=== PATIENT | male | born 1975 | race Caucasian/White ===

== ENCOUNTER 2018-12-14 21:57 | Emergency (ER) | payer BC, SELFPAY ==
[2018-12-14 21:57] VITALS: BP 145/91; PULSE 80; RESP 16; TEMP 36.6; O2SAT 100; BMI 26.9
[2018-12-14 22:01] VITALS: BP 145/91; PULSE 74; RESP 14; O2SAT 100
--- NOTE | 2018-12-14 22:01 | EKG12_ITS ---
Test Reason : CONFUSION Blood Pressure : / mmHG Vent. Rate : 071 BPM Atrial Rate : 071 BPM P-R Int : 188 ms QRS Dur : 090 ms QT Int : 382 ms P-R-T Axes : 074 059 065 degrees QTc Int : 415 ms Normal sinus rhythm Normal ECG Confirmed by RUBIO SMITH, AUDRA ([id number]), publication editor ALHAJI RIDLEY ([id number]) on 12/17/2018 2:15:57 PM Referred By: SARAH FINE Confirmed By:AUDRA BERGERON MD
--- NOTE | 2018-12-14 22:04 | CT_ITS ---
STUDY: CT BRAIN WITHOUT CONTRAST REASON FOR EXAM: Male, 43 years old. Confusion. Dizziness. RADIATION DOSAGE (If Supplied By Facility): CTDIvol = ( 44.99 ) mGy, DLP = ( 796.11 ) mGycm TECHNIQUE: Transaxial CT imaging of the brain was performed without administration of intravenous contrast material. Individualized dose optimization techniques were used for this CT. COMPARISON: None. FINDINGS: There is no acute bleed or infarct. There are normal white matter tracts. The ventricles are normal in configuration. There is no hydrocephalus. The visualized paranasal sinuses are clear. The mastoid air cells are well aerated. There is no skull fracture. CT/Brain/Head without Contrast IMPRESSION: No acute intracranial abnormality. Electronically Signed: Brina Cooper, at 22:42 EST Tel , Service support ,
[2018-12-14 22:11] LABS: Bedside Glucose 85 mg/dL (70-110)
--- NOTE | 2018-12-14 22:12 | ED.RN ---
NO OLD EKGS IN MUSE
[2018-12-14 22:18] LABS: Absolute Lymphocyte Count 1.34 X10^3/ul (0.83-4.51); Absolute Neutrophil Count 3.4 X10^3/uL (2.0-7.7); Basophil# 0.03 X10^3/uL; Basophil% 0.5 % (0-1); Eosinophil# 0.26 X10^3/uL; Eosinophils% 4.7 % (0-5); Hematocrit 44.7 % (40-54); Hemoglobin 15.1 g/dl (13.0-16.5); Lymphocyte # 1.34 X10^3/ul (4.0); Mean Corp Hgb Conc 33.8 g/gl (32-36); Mean Corpuscular Hgb 29.8 pg (27.0-32.0); Mean Corpuscular Volume 88.2 fL (80-94); Mean Platelet Vol. 10.4 fl (6.2-12.0); Monocyte# 0.53 X10^3/uL; Monocyte% 9.5 % (0-10); Neutrophil # 3.42 X10^3/uL (2.7-7.7); Neutrophil % 61.1 % (47-70); Platelet Count 242 K/mm3 (150-450); RBC Distribution Width CV 12.7 % (11.6-14.6); RBC Distribution Width SD 40.3 fl (35.1-43.9); Red Blood Count 5.07 M/mm3 (4.6-6.2); White Blood Count 5.6 K/mm3 (4.4-11.0)
[2018-12-14 22:21] LABS: POSITIVE COUNT NO; POSITIVE DIFFERENTIAL NO; POSITIVE MORPHOLOGY NO
[2018-12-14 22:29] LABS: Anion Gap 6 (5-15); BUN 10 mg/dL (7-18); BUN/Creat Ratio 8.4 RATIO (10-20); Calcium,Total 8.8 mg/dL (8.5-10.1); Chloride 107 mmol/L (98-107); Creatinine, Serum 1.19 mg/dL (0.70-1.30); EST Glomerular Filtration Rate 71 mL/min (>60); Est Glom Filt Rate - Afr Amer 86 mL/min (>60); Estimated Creatinine Clearance 86.13 ml/min; Glucose 88 mg/dL (74-106); Potassium 3.9 mmol/L (3.5-5.1); Sodium Level 141 mmol/L (136-145)
[2018-12-14 22:50] LABS: Prothrombin Time (Protime)PT. 13.3 SECONDS (11.7-14.9)
[2018-12-14 22:59] VITALS: BP 154/98; PULSE 61; RESP 13; O2SAT 100
[2018-12-14 23:02] VITALS: BP 152/92; PULSE 69; RESP 14; O2SAT 100
--- NOTE | 2018-12-14 23:34 | ED.VISSUMM ---
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 He felt disoriented and lightheaded like he might pass out. He did not pass out. It lasted for 15-20 minutes tonight. Currently he does not feel lightheaded or disoriented. He stated the light bothers his eyes. He noticed that he was seeing some circles in his vision and some black spots. Currently he is seeing a few black spots in the periphery. He did miss dinner this evening. No history of migraines but does get tension headaches. No treatment. He denies any vertigo. Denies any weakness in his arms or legs or slurred speech or other stroke symptoms. Physical Examination: Vital signs reviewed General: Well-nourished well-developed Head: Normocephalic atraumatic Eyes: Pupils equal round and reactive to light extraocular movements intact ENT: TMs clear no hemotympanum no trauma Neck: Nontender full range of motion Cardiovascular: Regular rate rhythm no murmurs normal S1-S2 Respiratory: No distress clear to auscultation bilaterally chest nontender Abdomen: Soft nontender nondistended normal bowel sounds no masses Back: Nontender no CVA tenderness Extremities: Nontender active range of motion ?4 extremities no trauma Skin: Normal color no trauma Neuro alert oriented cranial nerves II through XII intact normal strength sensation reflexes NIH stroke scale 0. Normal gait. Test Results: [] Emergency Department Course and Treatment: [] EKG shows sinus rhythm at 71 without ischemia. CBC and chemistry normal. Blood sugar is 85. Coags are negative. CT head is normal. Patient patient given a bolus of IV fluids as well as Toradol. Reevaluation he felt much better. His headache is almost completely gone. He does not have any lightheadedness or visual difficulties. I think he has a migraine. He has had headache and felt lightheaded the light bothers his eyes. I do not think he has had a TIA or stroke. He could have had a near syncopal episode however with a migraine. I do not think he needs an emergent MRI or stroke workup as an inpatient. He will follow-up as an outpatient and return if he worsens Treatment Plan: [] Disposition: [] Impression: [] Migraine headache Near syncope secondary to migraine headache This note was generated with [employer] dictation software. It may contain incorrect words, spelling, and punctuation that were not noted in review of the chart prior to signing ED Disposition - Plan for ED Patient: Chief Complaint: Confusion Referrals: Ho Polo MD [Primary Care Provider] -
[2018-12-14] MEDS: Ketorolac 30 MG/ML Syringe IV (23:41)
--- NOTE | 2018-12-14 23:55 | ED.RN ---
PER DR. HORAN VERBAL ORDER IT IS OK TO DISCONTINUE [facility]
[2018-12-15 00:38] VITALS: BP 149/86; PULSE 78; RESP 15; O2SAT 100
--- NOTE | 2018-12-15 00:42 | ED.DEP ---
ED Disposition - Plan for ED Patient: Disposition: Home or Assisted Living Chief Complaint: Confusion Instructions: ED Headache Migraine Referrals: Ho Polo MD [Primary Care Provider] -
--- NOTE | 2018-12-15 00:48 | ED.RN ---
pt reports cont. headache. dr. gan informed. awaiting further orders will continue to monitor.
[2018-12-15 00:58] VITALS: BP 143/85; PULSE 73; RESP 17; O2SAT 99
--- NOTE | 2018-12-15 00:59 | ED.RN ---
PT EDUCATED ON WRITTEN AND VERBAL DISCHARGE INSTRUCTIONS. PT VERBALIZES UNDERSTANDING AND DENIES ANY FURTHER QUESTIONS. I/V D/C AND COVERED WITH 2X2 GAUZE AND PAPER TAPE.
--- OUTSIDE RECORDS SUMMARY | 2019-02-16 | XMS RPT_ITS | Clinical Summary ---
:1975 Author Organization [facility] Address [address] [place] [address] Phone Care Team Providers Name Role Phone Hope Cheatham Unavailable Conditions or Problems Problem Name Problem Onset Status Entry Provider Comment Standard Annotate Code Date Date Description Surgical 172645420 Active Safdar Surgical followup visit (SNOMED CT) 03/24 03/24 Jose Enrique follow-up [place] Hx of lumbar 063542145 Active Safdar Operation on spine surgery (SNOMED CT) 02/23 02/23 Jose Enrique lumbar spine (not billable [place] after 08/23/2016) Spondylosis, 034692960 Active Safdar Lumbosacral lumbar, with (SNOMED CT) 12/01 12/01 Jose Enrique spondylosis radiculopathy [place] with radiculopathy Medications Medication Instructions Start Stop Generic Name NDC Provider Date Date ADVIL 200 MG IBUPROFEN [id number] Enoc L CAPS 9 Marium Medications Administered No information available. Allergies, Adverse Reactions, Alerts Observed no known allergies at Results Date Name Value Unit Range Flag Description Office Visit: Spine Visit MEDS REVIEW Done Documentation of current medications (procedure) ORALTOBACUSE Never Tobacco smoking status NHIS SMOK STATUS Never smoker Tobacco use [facility] Plan of Care Type Date Detail Appointment 10:45 AM Hope Cheatham, [address] [facility], [address], [place], [address], Referral [facility], [address] [facility], [place], [address] Referral [facility], [address] [place] [address], [address] Referral [facility], [address] [place] [address], [address] Referral [facility], [address] [place] [address], [phone] + Referral [facility], [address] [place] [address], [phone] + Referral [facility], [address] [place] [address], [phone] + Procedures No information available. Vital Signs Date Name Value Unit Description BMI (Body Mass 25.80 kg/m2 Body Mass Index Index) [Ratio] Height 71 [in_us] height E&M - 8302-2 Weight Measured 185 [lb_av] weight E&M - 3141-9
--- OUTSIDE RECORDS SUMMARY | 2019-02-16 | XMS RPT_ITS | Clinical Summary ---
:1975 Author Organization [facility], [facility] Address 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 208258622 Active [facility] Surgical followup (SNOMED 03/24 03/24 Jose Enrique follow-up visit CT) [place] Hx of lumbar 114810765 Active [facility]dar Operation on spine surgery (SNOMED 02/23 02/23 Jose Enrique lumbar spine (not billable CT) [place] after 08/23/2016) Spondylosis, 375967713 Active Safdar Lumbosacral lumbar, with (SNOMED 12/01 12/01 Jose Enrique spondylosis with radiculopathy CT) [place] radiculopathy Medications Medication Instructions Start Stop Generic Name NDC Provider Date Date NEXIUM 24HR 20 Take one tablet / ESOMEPRAZOLE [id number] Kyaw D MG CPDR daily 3 02 MAGNESIUM Osiel ALMAGUER ADVIL 200 MG IBUPROFEN [id number] Enoc [place] CAPS 9 Marium NEXIUM PACK PRN ESOMEPRAZOLE [id number] Arminda Riley 3 MAGNESIUM PACK Bryce PYLE Medications Administered No information available. Allergies, Adverse Reactions, Alerts Observed no known allergies at Results Date Name Value Unit Range Flag Description Office Visit: UC: choked and now having acid reflux FALLRSKASSES No Fall risk assessment ORALTOBACUSE Never Tobacco smoking status NHIS SMOK STATUS Never smoker Tobacco use [facility] MEDS REVIEW Done Documentation of current medications (procedure) Plan of Care Type Date Detail Appointment 06:30 AM Kyaw ALMAGUER, [address] [facility], [address], [place], [address], Appointment 09:00 AM Hope Cheatham, [facility] [facility], [address], [place], [address], Referral Surgery Referral Po Wilkinson MD, [facility], [address] [facility], [address], [place], [address] Referral Surgery Referral Po Wilkinson MD, [facility], [address] [facility], [address], [place], [address] Referral [facility], [address] [place] [address], [address] Referral [facility], [address] [place] [address], [address] Referral [facility], [address] [place] [address], [address] Referral [facility], [address] [place] [address], [address] Referral [facility], [address] [place] [address], [address] Referral [facility], [address] [place] [address], [address] Patient education GASTROESOPHAGEAL%20REFLUX%20DISEASE Procedures Code Procedure Name Date Entry Date CPT-33699 IM or SQ Injection Vital Signs Date Name Value Unit Description BMI (Body Mass Index) 25.27 kg/m2 Body Mass Index [Ratio] Body Temperature 98.2 [degF] temperature E&M BP Diastolic 72 mm[Hg] blood pressure, diastolic - 8462-4 BP Systolic 108 mm[Hg] blood pressure, systolic - 8480-6 Heart Rate 84 /min pulse rate E&M - 8867-4 Height 71 [in_us] height E&M - 8302-2 O2 % BldC Oximetry 98 % oxygen saturation, oximetry Respiratory Rate 14 /min respiratory rate E&M - 9279-1 Weight Measured 181.2 [lb_av] weight E&M - 3141-9
--- OUTSIDE RECORDS SUMMARY | 2019-02-16 | XMS RPT_ITS | Clinical Summary ---
:[address] [facility] Address [address] [place] [address] Phone Care Team Providers Name Role Phone Anabela Phillip Unavailable Conditions or Problems Problem Name Problem Onset Status Entry Provider Comment Standard Annotate Code Date Date Description Surgical 050726311 Active [facility] Surgical followup visit (SNOMED CT) 03/24 03/24 Jose Enrique follow-up [place] Hx of lumbar 879010112 Active [facility] Operation on spine surgery (SNOMED CT) 02/23 02/23 Jose Enrique lumbar spine (not billable [place] after 08/23/2016) Spondylosis, 220852312 Active Safdar Lumbosacral lumbar, with (SNOMED CT) 12/01 12/01 Jose Enrique spondylosis radiculopathy [place] with radiculopathy Medications Medication Instructions Start Stop Generic Name NDC Provider Date Date ADVIL 200 MG IBUPROFEN [id number] Enoc L CAPS 9 Marium Medications Administered No information available. Allergies, Adverse Reactions, Alerts Observed no known allergies at Results Date Name Value Unit Range Flag Description Office Visit: Spine Visit MEDS REVIEW Done Documentation of current medications (procedure) ORALTOBACUSE Never Tobacco smoking status NHIS SMOK STATUS Never smoker Tobacco use [facility] Plan of Care Type Date Detail Appointment 08:00 AM Hope Cheatham, [address] [facility], [address], [place], [address], Referral [facility], [address] [facility], [place], [address] Referral [facility], [address] [place] [address], [address] Referral [facility], [address] [place] [address], [address] Referral [facility], [address] [place] [address], [phone] + Referral [facility], [address] [place] [address], [phone] + Referral [facility], [address] [place] [address], [phone] + Procedures No information available. Vital Signs Date Name Value Unit Description BMI (Body Mass 25.80 kg/m2 Body Mass Index Index) [Ratio] Height 71 [in_us] height E&M - 8302-2 Weight Measured 185 [lb_av] weight E&M - 3141-9
--- OUTSIDE RECORDS SUMMARY | 2019-02-16 | XMS RPT_ITS | Clinical Summary ---
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 237726556 Active [facility] Surgical followup (SNOMED 03/24 03/24 Jose Enrique follow-up visit CT) [place] Hx of lumbar 542262731 Active [facility]dar Operation on spine surgery (SNOMED 02/23 02/23 Jose Enrique lumbar spine (not billable CT) [place] after 08/23/2016) Spondylosis, 612466044 Active Safdar Lumbosacral lumbar, with (SNOMED 12/01 12/01 Jose Enrique spondylosis with radiculopathy CT) [place] radiculopathy Medications Medication Instructions Start Stop Generic Name NDC Provider Date Date NEXIUM 24HR 20 Take one tablet / ESOMEPRAZOLE [id number] Kyaw D MG CPDR daily 3 02 MAGNESIUM Osiel ALMAGUER ADVIL 200 MG IBUPROFEN 38777390073 Enoc [place] CAPS 9 Marium NEXIUM PACK PRN ESOMEPRAZOLE [id number] Arminda Riley 3 MAGNESIUM PACK Bryce INTEGRATED CIRCUIT FABRICATOR Medications Administered No information available. Allergies, Adverse Reactions, Alerts Observed no known allergies at Results Date Name Value Unit Range Flag Description Office Visit: UC: choked and now having acid reflux FALLRSKASSES No Fall risk assessment Office Visit: Spine Visit MEDS REVIEW Done Documentation of current medications (procedure) ORALTOBACUSE Never Tobacco smoking status NHIS SMOK STATUS Never smoker Tobacco use [facility] Plan of Care Type Date Detail Referral Surgery Referral Po Wilkinson MD, [facility], [address] [facility], [address], [place], [address] Referral Surgery Referral Po Wilkinson MD, [facility], [address] [facility], [address], [place], [address] Referral [facility], [address] [place] [address], [address] Referral [facility], [address] [place] [address], [address] Referral [facility], [address] [place] [address] [place], [address] Referral [facility], [address] [place] [address] [place], [address] Referral [facility], [address] [place] [address], [address] Referral [facility], [address] [place] [address] [place], [address] Pending order X-Ray, Spine, Lumbosacral 2-3 views Pending order X-Ray, Spine, Lumbosacral 2-3 views Pending order X-Ray, Spine, Lumbosacral 2-3 views Pending Order excluded from report: Patient education GASTROESOPHAGEAL%20REFLUX%20DISEASE Procedures Code Procedure Name Date Entry Date CPT-37540 X-Ray, Spine, Lumbosacral 2-3 views Order excluded from report: CPT-94296 IM or SQ Injection Vital Signs Date Name Value Unit Description BMI (Body Mass Index) 25.27 kg/m2 Body Mass Index [Ratio] Body Temperature 98.2 [degF] temperature E&M BP Diastolic 72 mm[Hg] blood pressure, diastolic - 8462-4 BP Systolic 108 mm[Hg] blood pressure, systolic - 8480-6 Heart Rate 84 /min pulse rate E&M - 8867-4 Height 71 [in_us] height E&M - 8302-2 Respiratory Rate 14 /min respiratory rate E&M - 9279-1 Weight Measured 181.2 [lb_av] weight E&M - 3141-9
--- OUTSIDE RECORDS SUMMARY | 2019-02-16 | XMS RPT_ITS | Clinical Summary ---
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 046698793 Active [facility] Surgical followup (SNOMED 03/24 03/24 Jose Enrique follow-up visit CT) [place] Hx of lumbar 760669153 Active [facility]dar Operation on spine surgery (SNOMED 02/23 02/23 Jose Enrique lumbar spine (not billable CT) [place] after 08/23/2016) Spondylosis, 378890938 Active Safdar Lumbosacral lumbar, with (SNOMED 12/01 12/01 Jose Enrique spondylosis with radiculopathy CT) [place] radiculopathy Medications Medication Instructions Start Stop Generic Name NDC Provider Date Date NEXIUM 24HR 20 Take one tablet / ESOMEPRAZOLE [id number] Kyaw D MG CPDR daily 3 02 MAGNESIUM Osiel ALMAGUER ADVIL 200 MG IBUPROFEN 56171049605 Enoc [place] CAPS 9 Marium NEXIUM PACK PRN ESOMEPRAZOLE [id number] Arminda Riley 3 MAGNESIUM PACK Bryce PYLE Medications Administered No information available. Allergies, Adverse Reactions, Alerts Observed no known allergies at Results Date Name Value Unit Range Flag Description Office Visit: UC: choked and now having acid reflux FALLRSKASSES No Fall risk assessment ORALTOBACUSE Never Tobacco smoking status NHIS SMOK STATUS Never smoker Tobacco use [facility] MEDS REVIEW Done Documentation of current medications (procedure) Plan of Care Type Date Detail Appointment 09:00 AM Hope Cheatham, [address] [facility], [address], [place], [address], Referral Surgery Referral Po Wilkinson MD, [facility], [address] [facility], [address], [place], [address] Referral Surgery Referral Po Wilkinson MD, [facility], [address] [facility], [address], [place], [address] Referral [facility] Therapy [facility], [address] [place] [address], [address] Referral [facility], [address] [place] [address], [address] Referral [facility], [address] [place] [address], [address] Referral [facility], [address] [place] [address], [address] Referral [facility] Therapy [facility], [address] [place] [address], [address] Referral [facility], [address] [place] [address], [address] Patient education GASTROESOPHAGEAL%20REFLUX%20DISEASE Procedures Code Procedure Name Date Entry Date CPT-12490 IM or SQ Injection Vital Signs Date [...]
--- OUTSIDE RECORDS SUMMARY | 2019-02-16 | XMS RPT_ITS | Clinical Summary ---
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 [id number] Active [facility] Surgical followup (SNOMED 03/24 03/24 Jose Enrique follow-up visit CT) [place] Hx of lumbar [id number] Active [facility] Operation on spine surgery (SNOMED 02/23 02/23 Jose Enrique lumbar spine (not billable CT) [place] after 08/23/2016) Spondylosis, 449276462 Active [facility] Lumbosacral lumbar, with (SNOMED 12/01 12/01 Jose Enrique spondylosis with radiculopathy CT) [place] radiculopathy Medications Medication Instructions Start Stop Generic Name NDC Provider Date Date NEXIUM 24HR 20 Take one tablet / ESOMEPRAZOLE [id number] Kyaw D MG CPDR daily 3 02 MAGNESIUM Osiel ALMAGUER ADVIL 200 MG IBUPROFEN [id number] Enoc [place] CAPS 9 Marium NEXIUM PACK PRN ESOMEPRAZOLE [id number] Arminda Riley 3 MAGNESIUM PACK Bryce ASSISTANT 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 Allergies, Adverse Reactions, Alerts Observed no known allergies at Results Date Name Value Unit Range Flag Description Office Visit: UC: choked and now having acid reflux FALLRSKAEDWARDES No Fall risk assessment Office Visit: Spine Visit MEDS REVIEW Done Documentation of current medications (procedure) ORALTOBACUSE Never Tobacco smoking status NHIS SMOK STATUS Never smoker Tobacco use [facility] Plan of Care Type Date Detail Appointment 09:00 AM Hope [place], [address] [place] [address], [address], [place], [address], Appointment 09:00 AM Hope [place]atham, [address] [facility], [address], [place], [address], Referral Surgery Referral Po Wilkinson MD, [facility], [address] [facility], [address], [place], [address] Referral Surgery Referral Po Wilkinson MD, [facility], [address] [facility], [address], [place], [address] Referral [facility], [address] [place] [address], [place], [address] Referral [facility], [address] [place] [address] [place], [address] Referral [facility], [address] [place] [address], [place], [address] Referral [facility], [address] [place] [address], [place], [address] Referral [facility], [address] [place] [address], [place], [address] Referral [facility], [address] [place] [address] [place], [address] Pending order X-Ray, Spine, Lumbosacral 2-3 views Pending order X-Ray, Spine, Lumbosacral 2-3 views Pending order X-Ray, Spine, Lumbosacral 2-3 views Pending Order excluded from report: Patient education GASTROESOPHAGEAL%20REFLUX%20DISEASE Procedures Code Procedure Name Date Entry Date CPT-92182 X-Ray, Spine, Lumbosacral 2-3 views Order excluded from report: CPT-84341 IM or SQ Injection Vital Signs Date [...]
--- OUTSIDE RECORDS SUMMARY | 2019-02-16 | XMS RPT_ITS | Clinical Summary ---
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 113633699 Active [facility] Surgical followup (SNOMED 03/24 03/24 Jose Enrique follow-up visit CT) [place] Hx of lumbar 413752382 Active [facility] Operation on spine surgery (SNOMED 02/23 02/23 Jose Enrique lumbar spine (not billable CT) [place] after 08/23/2016) Spondylosis, 197435995 Active [facility] Lumbosacral lumbar, with (SNOMED 12/01 12/01 Jose Enrique spondylosis with radiculopathy CT) [place] radiculopathy Medications Medication Instructions Start Stop Generic Name NDC Provider Date Date NEXIUM 24HR 20 Take one tablet / ESOMEPRAZOLE [id number] Kyaw D MG CPDR daily 3 02 MAGNESIUM Osiel ALMAGUER ADVIL 200 MG IBUPROFEN [id number] Enoc [place] CAPS 9 Marium NEXIUM PACK PRN ESOMEPRAZOLE [id number] Arminda Riley 3 MAGNESIUM PACK Bryce PYLE [...] Detail Appointment 06:30 AM Kyaw ALMAGUER, [address] [facility], [address], [place], [address], Appointment 09:00 AM Hope [place], [facility] [facility], [address], [place], [address], Referral [facility], [address] [place] [address], [address] Referral [facility] Therapy [facility], [address] [place] [address], [address] Referral [facility], [address] [place] [address], [address] Referral [facility], [address] [place] [address], [address] Referral [facility], [address] [place] [address], [address] Referral [facility], [address] [place] [address], [address] Patient education GASTROESOPHAGEAL%20REFLUX%20DISEASE Procedures Code Procedure Name Date Entry Date CPT-00025 IM or SQ Injection Vital Signs Date [...]
--- OUTSIDE RECORDS SUMMARY | 2019-02-16 | XMS RPT_ITS | Clinical Summary ---
:[address] [facility] Address [address] [place] [address] Phone Care Team Providers Name Role Phone Hope [place] Unavailable Conditions or Problems Problem Name Problem Onset Status Entry Provider Comment Standard Annotate Code Date Date Description Surgical [id number] Active [facility] Surgical followup visit (SNOMED CT) 03/24 03/24 Jose Enrique follow-up [place] Hx of lumbar 866793462 Active [facility] Operation on spine surgery (SNOMED CT) 02/23 02/23 Jose Enrique lumbar spine (not billable [place] after 08/23/2016) Spondylosis, 123626796 Active [facility] Lumbosacral lumbar, with (SNOMED CT) 12/01 12/01 Jose Enrique spondylosis radiculopathy [place] with radiculopathy Medications Medication Instructions Start Stop Generic Name NDC Provider Date Date ADVIL 200 MG IBUPROFEN [id number] Enoc L CAPS 9 Marium Medications Administered No information available. Allergies, Adverse Reactions, Alerts Observed no known allergies at Results Date Name Value Unit Range Flag Description Office Visit: Spine Visit MEDS REVIEW Done Documentation of current medications (procedure) ORALTOBACUSE Never Tobacco smoking status NHIS SMOK STATUS Never smoker Tobacco use [facility] Plan of Care Type Date Detail Appointment 08:00 AM Hope Quispe [place], [address] [place] [address], [address], [place], [address], Appointment 08:00 AM Mynormarah Jose Enrique Mensahan, [address] [place] [address], [facility] [address], [place], [address], Referral [facility], [address] [place] [address], [address] + Referral [facility], [address] [place] [address], [address] + Referral [facility], [address] [place] [address], [address] + Referral [facility], [address] [place] [address], [address] + Procedures No information available. Vital Signs Date Name Value Unit Description BMI (Body Mass 25.80 kg/m2 Body Mass Index Index) [Ratio] Height 71 [in_us] height E&M - 8302-2 Weight Measured 185 [lb_av] weight E&M - 3141-9
--- OUTSIDE RECORDS SUMMARY | 2019-02-16 | XMS RPT_ITS | Clinical Summary ---
:[address] 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 809280774 Active [facility] Surgical followup (SNOMED 03/24 03/24 Jose Enrique follow-up visit CT) [place] Hx of lumbar 484395589 Active [facility] Operation on spine surgery (SNOMED 02/23 02/23 Jose Enrique lumbar spine (not billable CT) [place] after 08/23/2016) Spondylosis, 255363328 Active [facility] Lumbosacral lumbar, with (SNOMED 12/01 12/01 Jose Enrique spondylosis with radiculopathy CT) [place] radiculopathy Medications Medication Instructions Start Stop Generic Name NDC Provider Date Date NEXIUM 24HR 20 Take one tablet / ESOMEPRAZOLE [id number] Kyaw D MG CPDR daily 3 02 MAGNESIUM Osiel ALMAGUER ADVIL 200 MG IBUPROFEN 33086463450 Enoc L CAPS 9 Marium NEXIUM PACK PRN ESOMEPRAZOLE [id number] Arminda Riley 3 MAGNESIUM PACK Bryce REGIONAL CRA Medications Administered No information available. Allergies, Adverse Reactions, Alerts Observed no known allergies at Results Date Name Value Unit Range Flag Description Office Visit: UC: choked and now having acid reflux FALLRSKASSES No Fall risk assessment Office Visit: Spine Visit MEDS REVIEW Done Documentation of current medications (procedure) ORALTOBACUSE Never Tobacco smoking status NHIS SMOK STATUS Never smoker Tobacco use [facility] Plan of Care Type Date Detail Appointment 09:00 AM Hope [place], [address] [facility], [address], [place], [address], Referral Surgery Referral Po Wilkinson MD, [facility], [address] [facility] [place] [facility], [address], [place], [address] Referral Surgery Referral Po Wilkinson MD, [facility], [address] [facility], [address], [place], [address] Referral [facility] Therapy [facility], [address] [place] [address] [place], [address] Referral [facility], [address] [place] [address] [place], [address] Referral [facility], [address] [place] [address] [place], [address] Referral [facility], [address] [place] [address] [place], [address] Referral [facility], [address] [place] [address] [place], [address] Referral [facility], [address] [place] [address] [place], [address] Pending order X-Ray, Spine, Lumbosacral 2-3 views Pending order X-Ray, Spine, Lumbosacral 2-3 views Pending order X-Ray, Spine, Lumbosacral 2-3 views Pending Order excluded from report: Patient education GASTROESOPHAGEAL%20REFLUX%20DISEASE Procedures Code Procedure Name Date Entry Date CPT-40732 X-Ray, Spine, Lumbosacral 2-3 views Order excluded from report: CPT-59608 IM or SQ Injection Vital Signs Date [...]
--- OUTSIDE RECORDS SUMMARY | 2019-02-16 | XMS RPT_ITS | Clinical Summary ---
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 021325048 Active [facility] Surgical followup (SNOMED 03/24 03/24 Jose Enrique follow-up visit CT) [place] Hx of lumbar 306648631 Active [facility] Operation on spine surgery (SNOMED 02/23 02/23 Jose Enrique lumbar spine (not billable CT) [place] after 08/23/2016) Spondylosis, 974756438 Active [facility] Lumbosacral lumbar, with (SNOMED 12/01 12/01 Jose Enrique spondylosis with radiculopathy CT) [place] radiculopathy Medications Medication Instructions Start Stop Generic Name NDC Provider Date Date NEXIUM 24HR 20 Take one tablet / ESOMEPRAZOLE [id number] Kyaw D MG CPDR daily 3 02 MAGNESIUM Osiel ALMAGUER ADVIL 200 MG IBUPROFEN 26838510166 Enoc [place] CAPS 9 Marium NEXIUM PACK PRN ESOMEPRAZOLE [id number] Arminda Riley 3 MAGNESIUM PACK Bryce LOCKS INSPECTOR Medications Administered No information available. Allergies, Adverse Reactions, Alerts Observed no known allergies at Results Date Name Value Unit Range Flag Description Office Visit: UC: choked and now having acid reflux FALLRSJAIME No Fall risk assessment Office Visit: Spine Visit MEDS REVIEW Done Documentation of current medications (procedure) ORALTOBACUSE Never Tobacco smoking status NHIS SMOK STATUS Never smoker Tobacco use [facility] Plan of Care Type Date Detail Appointment 09:00 AM Hope [place], [address] [facility], [address], [place], [address], Referral Surgery Referral Po Wilkinson MD, [facility], [address] [facility], [address], [place], [address] Referral Surgery Referral Po Wilkinson MD, [facility], [address] [facility], [address], [place], [address] Referral [facility] Therapy [facility], [address] [place] [address] [place], [address] Referral [facility], [address] [place] [address] [place], [address] Referral [facility], [address] [place] [address] [place], [address] Referral [facility], [address] [place] [address] [place], [address] Referral [facility], [address] [place] [address] [place], [address] Referral [facility], [address] [place] [address], [address] Pending order X-Ray, Spine, Lumbosacral 2-3 views Pending order X-Ray, Spine, Lumbosacral 2-3 views Pending order X-Ray, Spine, Lumbosacral 2-3 views Pending Order excluded from report: Patient education GASTROESOPHAGEAL%20REFLUX%20DISEASE Procedures Code Procedure Name Date Entry Date CPT-68022 X-Ray, Spine, Lumbosacral 2-3 views Order excluded from report: CPT-79970 IM or SQ Injection Vital Signs Date [...]
--- OUTSIDE RECORDS SUMMARY | 2019-02-16 | XMS RPT_ITS | Clinical Summary ---
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 536135878 Active [facility] Surgical followup (SNOMED 03/24 03/24 Jose Enrique follow-up visit CT) [place] Hx of lumbar 843299019 Active [facility] Operation on spine surgery (SNOMED 02/23 02/23 Jose Enrique lumbar spine (not billable CT) [place] after 08/23/2016) Spondylosis, 808906927 Active [facility] Lumbosacral lumbar, with (SNOMED 12/01 12/01 Jose Enrique spondylosis with radiculopathy CT) [place] radiculopathy Medications Medication Instructions Start Stop Generic Name NDC Provider Date Date NEXIUM 24HR 20 Take one tablet / ESOMEPRAZOLE 09063959008 Kyaw D MG CPDR daily 3 02 MAGNESIUM Osiel ALMAGUER ADVIL 200 MG IBUPROFEN [id number] Enoc [place] CAPS 9 Marium NEXIUM PACK PRN ESOMEPRAZOLE [id number] Arminda Riley 3 MAGNESIUM PACK Bryce PYLE [...] Detail Appointment 06:30 AM Kyaw ALMAGUER, [address] [facility], [address], [place], [address], Appointment 09:00 AM Hope [place], [facility] [facility], [address], [place], [address], Referral Surgery Referral Po Wilkinson MD, [facility], [address] [facility], [address], [place], [address] Referral Surgery Referral Po Wilkinson MD, [facility], [address] [facility], [address], [place], [address] Referral [facility] Therapy [facility], [address] [place] [address], [address] Referral [facility] Therapy [facility], [address] [place] [address], [address] Referral [facility], [address] [place] [address], [address] Referral [facility], [address] [place] [address], [address] Referral [facility], [address] [place] [address], [address] Referral [facility] Therapy [facility], [address] [place] [address], [address] Patient education GASTROESOPHAGEAL%20REFLUX%20DISEASE Procedures Code Procedure Name Date Entry Date CPT-59438 IM or SQ Injection Vital Signs Date [...]
--- OUTSIDE RECORDS SUMMARY | 2019-02-16 | XMS RPT_ITS | Clinical Summary ---
:1975 Author Organization [facility] Address [address] [place] [address] Phone Care Team Providers Name Role Phone Anabela Phillip Unavailable Conditions or Problems Problem Name Problem Onset Status Entry Provider Comment Standard Annotate Code Date Date Description Hx of lumbar 028958132 Active [facility] Operation on spine surgery (SNOMED CT) 02/23 02/23 Jose Enrique lumbar spine (not billable [place] after 08/23/2016) Spondylosis, 539720796 Active [facility] Lumbosacral lumbar, with (SNOMED CT) 12/01 12/01 Jose Enrique spondylosis radiculopathy [place] with radiculopathy Medications Medication Instructions Start Stop Generic Name NDC Provider Date Date ADVIL 200 MG IBUPROFEN [id number] Enoc L CAPS 9 Marium Medications Administered No information available. Allergies, Adverse Reactions, Alerts Observed no known allergies at Results Date Name Value Unit Range Flag Description Office Visit: Spine Visit MEDS REVIEW Done Documentation of current medications (procedure) Plan of Care Type Date Detail Appointment 08:00 AM Hope [place]atham, [facility] [facility], [address], [place], [address], Referral [facility], [address] [place] [address], [address] Referral [facility], [address] [place] [address], [address] Referral [facility], [address] [place] [address], [address] + Referral [facility], [address] [place] [address], [address] + Procedures No information available. Vital Signs Date Name Value Unit Description BMI (Body Mass 25.80 kg/m2 Body Mass Index Index) [Ratio] Height 71 [in_us] height E&M - 8302-2 Weight Measured 185 [lb_av] weight E&M - 3141-9
--- OUTSIDE RECORDS SUMMARY | 2019-02-16 | XMS RPT_ITS | Clinical Summary ---
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 384089245 Active [facility] Surgical followup (SNOMED 03/24 03/24 Jose Enrique follow-up visit CT) [place] Hx of lumbar 445212973 Active [facility] Operation on spine surgery (SNOMED 02/23 02/23 Jose Enrique lumbar spine (not billable CT) [place] after 08/23/2016) Spondylosis, 999725920 Active [facility] Lumbosacral lumbar, with (SNOMED 12/01 12/01 Jose Enrique spondylosis with radiculopathy CT) [place] radiculopathy Medications Medication Instructions Start Stop Generic Name NDC Provider Date Date NEXIUM 24HR 20 Take one tablet / ESOMEPRAZOLE [id number] Kyaw D MG CPDR daily 3 02 MAGNESIUM Osiel ALMAGUER ADVIL 200 MG IBUPROFEN 23773966543 Enoc [place] CAPS 9 Marium NEXIUM PACK PRN ESOMEPRAZOLE [id number] Arminda Riley 3 MAGNESIUM PACK Bryce DEVELOPMENT EDUCATOR Medications Administered No information available. Allergies, Adverse Reactions, Alerts Observed no known allergies at Results Date Name Value Unit Range Flag Description Office Visit: UC: choked and now having acid reflux FALLRSKASSES No Fall risk assessment Office Visit: Spine Visit MEDS REVIEW Done Documentation of current medications (procedure) ORALTOBACUSE Never Tobacco smoking status NHIS SMOK STATUS Never smoker Tobacco use [facility] Plan of Care Type Date Detail Referral Surgery Referral Po [facility], [facility], [address] [facility], [address], [place], [address] Referral Surgery Referral Po Wilkinson MD, [facility], [address] [facility], [address], [place], [address] Referral [facility], [address] [place] [address], [address] Referral [facility], [address] [place] [address], [address] Referral [facility], [address] [place] [address] [place], [address] Referral [facility], [address] [place] [address] [place], [address] Referral [facility], [address] [place] [address], [address] Referral [facility], [address] [place] [address] [place], [address] Pending order X-Ray, Spine, Lumbosacral 2-3 views Pending order X-Ray, Spine, Lumbosacral 2-3 views Pending order X-Ray, Spine, Lumbosacral 2-3 views Pending Order excluded from report: Patient education GASTROESOPHAGEAL%20REFLUX%20DISEASE Procedures Code Procedure Name Date Entry Date CPT-70515 X-Ray, Spine, Lumbosacral 2-3 views Order excluded from report: CPT-69968 IM or SQ Injection Vital Signs Date [...]
--- OUTSIDE RECORDS SUMMARY | 2019-02-16 | XMS RPT_ITS ---
:1975 Author Organization [facility] Care Team Providers Name Role Phone Adonay, Dr. Renato Hyawood Admitting Unavailable Viau, Dr. Renato Haywood Attending Unavailable IRON POLO Admitting Unavailable VIAU, RENATO MIRZA Attending Unavailable IRON POLO Referring Unavailable IRON POLO Primary Care Unavailable VIAU, RENATO MIRZA Attending Unavailable IRON POLO Primary Care Unavailable Iron Polo Primary Care Unavailable Balaji Boudreaux Attending Unavailable PROBLEMS PROBLEMS DATE TYPE CONDITION / CODE ATTENDING STATUS SOURCE 09/21/2018 Admitting Pain, unspecified / VIAU, RENATO [facility] diagnosis R52(ICD-10) Y[facility] Three Repository 09/16/2018 Admitting Dorsalgia, VIAU, RENATO [facility] diagnosis unspecified / [facility] Three M54.9(ICD-10) Repository 09/16/2018 Admitting Other intervertebral VIAU, [facility] diagnosis disc degeneration, YUKI Joao lumbar region / Repository M51.36(ICD-10) PROCEDURES PROCEDURES No Procedure Records FoundRESULTS RESULTS DISCHARGE INSTRUCTION Observed: 12/15/2018 Status: F Source: [place] 5:44 AM [facility] Medical Records Department [address] [place] [address] Discharge Instruction 12/15/18 0042 MR#: [id number] Acct: [id number] Name: JOSE ANGELAHeather Kingston Rep #: [id number] : 1975 43 From: Balaji Boudreaux MD PCP: Iron Polo MD Status: DEP ER ED Disposition - Plan for ED Patient: Disposition: Home or Assisted Living Chief Complaint: Confusion Instructions: ED Headache Migraine Referrals: Iron Polo MD [Primary Care Provider] - What to do if you have Problems For any increased pain, shortness of breath, bleeding, nausea or vomiting, chest pain, or any unexpected problems, contact your Primary Care Provider. Call [facility] ([phone]) or report to the closest Emergency Room. Call 911 if necessary. 12/15/18 0544 <Electronically signed by Balaji Boudreaux MD> Date Balaji Boudreaux MD Cosigner Signature (If Indicated): Date CC: Iron Polo MD EMERGENCY DEPARTMENT Observed: 12/15/2018 Status: F Source: [place] SUMMARY 5:44 AM [facility] Medical Records Department [address] [place] [address] Emergency Department Summary 12/14/18 2334 MR#: [id number] Acct: [id number] Name: JULIO CÉSARMANUELA Kingston Rep #: [id number] : 1975 43 From: Balaji Boudreaux MD PCP: Iron Polo MD Status: DEP ER - ER Visit Summary Date of Service: 12/14/18 Chief Complaint: [] Disorientation with lightheadedness headache History of Present Illness: The patient is a 43 M 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 He felt disoriented and lightheaded like he might pass out. He did not pass out. It lasted for 15-20 minutes tonight. Currently he does not feel lightheaded or disoriented. He stated the light bothers his eyes. He noticed that he was seeing some circles in his vision and some black spots. Currently he is seeing a few black spots in the periphery. He did miss dinner this evening. No history of migraines but does get tension headaches. No treatment. He denies any vertigo. Denies any weakness in his arms or legs or slurred speech or other stroke symptoms. Physical Examination: Vital signs reviewed General: Well-nourished well-developed Head: Normocephalic atraumatic Eyes: Pupils equal round and reactive to light extraocular movements intact ENT: TMs clear no hemotympanum no trauma Neck: Nontender full range of motion Cardiovascular: Regular rate rhythm no murmurs normal S1-S2 Respiratory: No distress clear to auscultation bilaterally chest nontender Abdomen: Soft nontender nondistended normal bowel sounds no masses Back: Nontender no CVA tenderness Extremities: Nontender active range of motion 4 extremities no trauma Skin: Normal color no trauma Neuro alert oriented cranial nerves II through XII intact normal strength sensation reflexes NIH stroke scale 0. Normal gait. Test Results: [] Emergency Department Course and Treatment: [] EKG shows sinus rhythm at 71 without ischemia. CBC and chemistry normal. Blood sugar is 85. Coags are negative. CT head is normal. Patient patient given a bolus of IV fluids as well as Toradol. Reevaluation he felt much better. His headache is almost completely gone. He does not have any lightheadedness or visual difficulties. I think he has a migraine. He has had headache and felt lightheaded the light bothers his eyes. I do not think he has had a TIA or stroke. He could have had a near syncopal episode however with a migraine. I do not think he needs an emergent MRI or stroke workup as an inpatient. He will follow-up as an outpatient and return if he worsens Treatment Plan: [] Disposition: [] Impression: [] Migraine headache Near syncope secondary to migraine headache This note was generated with [employer] dictation software. It may contain incorrect words, spelling, and punctuation that were not noted in review of the chart prior to signing ED Disposition - Plan for ED Patient: Chief Complaint: Confusion Referrals: Iron Polo MD [Primary Care Provider] - What to do if you have Problems For any increased pain, shortness of breath, bleeding, nausea or vomiting, chest pain, or any unexpected problems, contact your Primary Care Provider. Call [facility] ([phone]) or report to the closest Emergency Room. Call 911 if necessary. 12/15/18 0544 <Electronically signed by Balaji Boudreaux MD> Date Balaji Boudreaux MD Cosigner Signature (If Indicated): Date CC: Iron Polo MD CBC W/DIFF, AUTOMATED Collected: 12/14/2018 Status: F Source: [place] 10:[address] [facility] REPOSITORY TYPE CODE TESTS RESULT OUT OF RANGE REFERENCE UNITS LAB L100.1000 4.4-11.0 K/mm3 Normal WBC 5.6 LAB L100.1200 4.6-6.2 M/mm3 Normal RBC 5.07 LAB L100.1300 13.0-16.5 g/dl Normal HGB 15.1 LAB L100.1400 40-54 % Normal HCT 44.7 LAB L100.1500 80-94 fL Normal MCV 88.2 LAB L100.1600 27.0-32.0 pg Normal MCH 29.8 LAB L100.1700 32-36 g/gl Normal MCHC 33.8 LAB L100.1810 11.6-14.6 % Normal RDW CV 12.7 LAB L100.1820 35.1-43.9 fl Normal RDW SD 40.3 LAB L100.1900 150-450 K/mm3 Normal PLT 242 LAB L100.2000 6.2-12.0 fl Normal MPV 10.4 LAB L100.2100 47-70 % Normal NEUT% 61.1 LAB L100.2200 19-41 % Normal LY% 24.0 LAB L100.2300 0-10 % Normal MONO% 9.5 LAB L100.2400 0-5 % Normal EO% 4.7 LAB L100.2500 0-1 % Normal BASO% 0.5 LAB L100.2550 0.0-0.9 % Normal IM GRAN % 0.200 Result Comment: IG% - Immature Granulocytes (promyelocytes, myelocytes and metamyelocytes) > 1% indicates that a LEFT SHIFT is Present. LAB L100.2620 2.0-7.7 X10 3/uL Normal Absolute Neut 3.4 LAB L100.2720 0.83-4.51 X10 3/ul Normal Absolute Lymph 1.34 Performed By: #### L100.0100, L500.2500 #### [facility] [address] [place], [address] BASIC METABOLIC Collected: 12/14/2018 Status: F Source: [place] PROFILE (BMP) 10:[address] [facility] REPOSITORY TYPE CODE TESTS RESULT OUT OF RANGE REFERENCE UNITS LAB L501.0100 74-106 mg/dL Normal GLU 88 Result Comment: Please note revised GLUCOSE reference range effective 2017. LAB L501.1000 7-18 mg/dL Normal BUN 10 LAB L501.1100 0.70-1.30 mg/dL Normal CREAT,SERUM 1.19 Result Comment: The validity of the calculated GFR AND GFRAA in patients over 70 years has not been determined. Clinical correlation is essential. LAB L501.1110 >60 mL/min Normal EST GFR 71 Result Comment: Non- GFR Calc LAB L501.1115 >60 mL/min Normal EST GFR - AA 86 Result Comment: GFR Calc LAB L501.1255 ml/min Normal Estimated CRCL 86.13 LAB L501.1300 10-20 RATIO Low BUN/CRE 8.4 LAB L501.2200 8.5-10 mg/dL Normal .1 CA 8.8 LAB L501.5300 136-14 mmol/L Normal 5 NA 141 LAB L501.5600 3.5-5. mmol/L Normal 1 K 3.9 LAB L501.5900 98-107 mmol/L Normal CL 107 LAB L501.6100 21.0-3 mmol/L Normal 2.0 CO2 28.0 LAB L501.6200 5-15 Normal GAP 6 Performed By: #### L100.0100, L500.2500 #### [facility] [address] [place], [address] PROTHROMBIN TIME W/INR Collected: 12/14/2018 Status: F Source: [place] 10:[address] [facility] REPOSITORY TYPE CODE TESTS RESULT OUT OF RANGE REFERENCE UNITS LAB L300.4150 11.7-14.9 SECONDS Normal PROTIME 13.3 LAB L300.4200 Normal INR 1.0 Performed By: #### L300.3900, L300.4310 #### [facility] [address] [place], [address] PARTIAL THROMBOPLAST Collected: 12/14/2018 Status: F Source: [place] TIME 10:[address] [facility] REPOSITORY TYPE CODE TESTS RESULT OUT OF RANGE REFERENCE UNITS LAB L300.4310 24.1-36.2 Seconds Normal PTT 31.0 Performed By: #### L300.3900, L300.4310 #### [facility] [address] [place], [address] BEDSIDE GLUCOSE Collected: 12/14/2018 Status: F Source: [place] 10:[address] [facility] REPOSITORY TYPE CODE TESTS RESULT OUT OF RANGE REFERENCE UNITS LAB L501.080 70-110 mg/dL Normal BEDSIDE GLU 85 Result Comment: MANAGEMENT OF PATIENT CARE PER NURSING PROTOCOL Performed By: #### L501.080 #### [facility] Point of Care [address] [place] [address] BRAIN/HEAD WITHOUT Observed: 12/14/2018 Status: F Source: [place] CONTRAST 10:[address] [facility] REPOSITORY [facility] Imaging Services [address] [place] [address] Brain/Head without Contrast MR#: [id number] Acct: [id number] Name: MANUELA ANGELA Rep #: [id number] : 1975 M 43 From: Brian Cooper MD PCP: Iron Polo MD Status: PRE ER Study: Brain/Head without Contrast Date of Exam: 12/14/18 Exam# [id number] Ordering Dr: Ramila Centeno MD STUDY: CT BRAIN WITHOUT CONTRAST REASON FOR EXAM: Male, 43 years old. Confusion. Dizziness. RADIATION DOSAGE (If Supplied By Facility): CTDIvol = ( 44.99 ) mGy, DLP = ( 796.11 ) mGycm TECHNIQUE: Transaxial CT imaging of the brain was performed without administration of intravenous contrast material. Individualized dose optimization techniques were used for this CT. COMPARISON: None. FINDINGS: There is no acute bleed or infarct. There are normal white matter tracts. The ventricles are normal in configuration. There is no hydrocephalus. The visualized paranasal sinuses are clear. The mastoid air cells are well aerated. There is no skull fracture. CT/Brain/Head without Contrast IMPRESSION: No acute intracranial abnormality. Electronically Signed: Brian Cooper, at 22:42 EST Tel , Service support , CC: Iron Polo MD; Ramila Centeno MD Procedure Manager: Signed SPINE LUMBAR 2 OR 3 Observed: 09/16/2018 Status: F Source: [facility] VIEWS 3:16 PM [facility] REPOSITORY Final Report Accession No: [id number] Performed: Sep 16 2018 3:16PM Examination: SPINE LUMBAR 2 OR 3 VIEWS EXAM TYPE: SPINE LUMBAR, 3 VIEWS EXAM DATE AND TIME: 09/16/2018 at 3:16 PM EDT. INDICATION: 42 years old Male with low back pain. COMPARISON: None. TECHNIQUE: Three views of the lumbar spine. FINDINGS: There is indeterminate mild anterior wedging of the L1 and L2 vertebral bodies (less than 25%). The remaining vertebral body heights are normal. Normal lumbar lordosis. 2 to 3 mm degenerative retrolisthesis is noted at L2 upon L3, L3 upon L4, L4 upon L5 and L5 upon S1. There is multilevel disc space narrowing with endplate degenerative changes at L3-L4, L4-L5 and L5-S1. A vacuum disc phenomena is noted at L5-S1. Moderate facet arthropathy is noted at the lumbosacral junction. IMPRESSION: 1. No acute fracture or traumatic malalignment. 2. Mild to moderate multilevel degenerative changes. Interpreting Physician: TEENA MAXWELL D.O. Trans: lcoope : cc: ALLERGIES ALLERGIES DATE TYPE / CODE NAME / CODE REACTION SEVERITY SOURCE 12/14/[address] [facility] Allergy/416 Allergies/O07932 Hospital 722777(SNOM 0388(RXNORM) Repository ED CT) Drug NO KNOWN [facility] Three Class/32234 ALLERGIES Repository 1003(SNOMED CT) ENCOUNTERS ENCOUNTERS ADMIT/DISCHARGE ACCOUNT NUMBER ADMITTING ENCOUNTER LOCATION SOURCE CLASS 12/14/2018/12/15/19 [id number] Emergency [place]ne [facility] ding:ED Repository 09/21/2018 [id number] Ambulatory Building:[facility] Three R Repository 09/16/[id number] Adonay Ambulatory [facility] Repository 09/16/2018/09/16/20 [id number] IRON POLO [address] R Repository PAYERS PAYERS ENCOUNTER GUARANTOR PAYER SUBSCRIBER SOURCE 12/14/2018 MANUELA [id number] Primary MANUELA ELLIOTTDOB: Dianne TR [facility] [id number] [facility] [address], y Number: [facility] [id number]: [id number] Repository Date:[id number] [address] ) [id number] [place] [id number]: 12/14/2018 Secondary NOT GIVENUNK [place] Insurance:SELF PAY [facility] Number: Effective Repository Date:2018-12-14 09/21/2018 MANUELA ELLIOTTDOB: Primary MANUELA ELLIOTTDOB: [facility] [id number] [facility] [id number] Three Repository TR y Number: [address], [id number] [place] [address]Lvy: Date:7621-20-10KP [facility] [id number] [id number] WHITE () [id number]: 09/16/2018 Primary MANUELA E [facility] Insurance:[employer] ELLIOTTDOB: Bryan and [address] [place] [address] Number: [id number] [facility] [id number] [address] Repository Date:Plan Name:Health [address] [id number]: () 09/16/2018 MANUELA ELLCULLENTTDOB: Primary MANUELA ELLIOTTDOB: [facility] Insurance:[facility] [id number] Three Repository TR y Number: [address] [place], [id number] PANFILO MERRILL [id number]: Date:0548-53-[address] [address] [place] [id number] CHARMAINE MUNGUIA () [address]JN:
== END 2018-12-15 01:00 | disposition home or self-care (01) ==
PROVIDERS: Emergency Provider Emergency Medicine
DX: G43.909 Migraine, unspecified, not intractable, without status migrainosus (principal); R55 Syncope and collapse
CPT/HCPCS: 70450; 80048; 82962; 85025; 85610; 85730; 93005; 96361; 96374; 99284; J7030; J7040; A4216

== ENCOUNTER → 2018-12-29 13:15 | Outpatient (CLI) | payer BC, SELFPAY ==
[2018-12-14 21:57] VITALS: BMI 26.9
--- NOTE | 2018-12-29 13:51 | MRI_ITS ---
STUDY: MRI BRAIN WITHOUT CONTRAST REASON FOR EXAM: Male, 43 years old. Blurred vision and right eye pain with headache TECHNIQUE: Standardized multiplanar fat and water weighted pulse sequences were obtained. COMPARISON: None. FINDINGS: Normal size of the ventricles and extra-axial spaces for the patient's age. Normal white matter tracts of the supratentorial brain. Normal bilateral basal ganglia. Normal thalami. There is no extra-axial fluid accumulation. Normal flow voids within the major intracranial circulation suggesting patency by spin echo criteria. Normal sella turcica, pituitary gland, infundibular stalk, optic chiasm and hypothalamus. Normal tectal plate and pineal gland. Normal midbrain, sabina and medulla. Normal cerebellum. Normal basal cisterns. Normal bilateral temporal bones. Normal bilateral internal auditory canals. No demonstrated orbital abnormality, within the constraints of a routine brain study. There is minor bilateral ethmoid sinus disease.. Normal calvarium and skull base. Normal visualized soft tissue structures. Normal visualized upper cervical spine. MRI/Brain without Contrast IMPRESSION: Normal unenhanced MRI of the brain. Minor bilateral ethmoid sinus disease Electronically Signed: Lance Vázquez MD at 17:32 EST , Service support ,
== END ==
DX: H53.8 Other visual disturbances (principal)
CPT/HCPCS: 70551